=== PATIENT | male | born 1975 | race Caucasian/White ===

== ENCOUNTER 2016-10-07 02:36 | Emergency (ER) | payer SELFPAY ==
[~2016-10-07] VITALS: Ht 170.2 cm; Wt 58.0 kg
[~2016-10-07 02:36] MED LIST: DEPA500T3 PO; OLAN5 PO
[2016-10-07 02:47] VITALS: BP 165/77; PULSE 99; RESP 18; TEMP 98.4; O2SAT 98
[2016-10-07] MEDS ORDERED: SODIUM CHLOR 0.9% 1000 ML INJ 1,000 ML IV ONE (03:00)
[2016-10-07 03:15] LABS: AUTOMATED NEUTROPHIL # 19.5 TH/MM3 (1.8-7.7); BASOPHIL % 0.2 % (0.0-2.0); EOSINOPHIL # 0.1 TH/MM3 (0-0.4); EOSINOPHIL % 0.3 % (0.0-4.0); HEMATOCRIT 41.1 % (39.0-51.0); HEMO FLAGS DIFF FINAL; LYMPH % 10.1 % (9.0-44.0); LYMPHOCYTE # 2.3 TH/MM3 (1.0-4.8); MEAN CELL VOLUME 91.3 FL (80.0-100.0); MONO % 5.4 % (0.0-8.0); PLATELET COUNT 289 TH/MM3 (150-450); RED CELL DISTRIBUTION WIDTH 13.3 % (11.6-17.2); WHITE BLOOD COUNT 23.2 TH/MM3 (4.0-11.0)
[2016-10-07] MEDS ORDERED: ACETAMINOPHEN 325 MG TAB PO ONE ×2 (03:15→11:30)
--- NOTE | 2016-10-07 03:31 | RADRPT ---
EXAM DATE/TIME: 10/07/2016 03:06 [facility] COMPARISON: No previous studies available for comparison. INDICATIONS : Shortness of breath. MEDICAL HISTORY : None. SURGICAL HISTORY : None. ENCOUNTER: Initial ACUITY: 1 day PAIN SCORE: 0/10 LOCATION: Bilateral chest FINDINGS: The lungs are clear without infiltrate, nodule, or mass. There is no appreciable pleural effusion fo r technique. Heart and mediastinum are unremarkable. CONCLUSION: No acute cardiopulmonary disease. Smooth Connelly MD on October 07, 2016 at 3:29 Board Certified Radiologist. This report was verified electronically.
[2016-10-07 03:34] LABS: ACETAMINOPHEN LESS THAN 2.0 MCG/ML (10.0-30.0); ALT (GPT) 26 U/L (12-78); ANION GAP 9 MEQ/L (5-15); AST (GOT) 29 U/L (15-37); BICARBONATE 22.6 MEQ/L (21.0-32.0); BLOOD UREA NITROGEN 18 MG/DL (7-18); CHLORIDE 109 MEQ/L (98-107); GLOMERULAR FILTRATION RATE 81 ML/MIN (>89); POTASSIUM 3.6 MEQ/L (3.5-5.1); SODIUM (NA) 141 MEQ/L (136-145)
[2016-10-07 03:36] LABS: ALKALINE PHOSPHATASE 98 U/L (45-117); CREATINE KINASE 744 U/L (39-308); TOTAL BILIRUBIN ADULT 0.3 MG/DL (0.2-1.0)
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
[2016-10-07 06:15] LABS: AMPHETAMINE, URINE NEG (NEG); BARBITURATES, URINE NEG (NEG); COCAINE, URINE NEG (NEG)
[2016-10-07] MEDS ORDERED: LORazepam 2 MG/ML VIAL IV PUSH ONE (11:45)
[2016-10-07 12:00] VITALS: BP 125/72; PULSE 76; RESP 16; O2SAT 98
[2016-10-07 12:57] VITALS: RESP 16
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
== END 2016-10-07 14:22 | disposition home or self-care (01) ==
LOC: NEPE 02:36
DX: F43.25 Adjustment disorder with mixed disturbance of emotions and conduct (principal); F19.94 Other psychoactive substance use, unspecified with psychoactive substance-induced mood disorder; R06.02 Shortness of breath; F31.9 Bipolar disorder, unspecified; F20.9 Schizophrenia, unspecified; F17.210 Nicotine dependence, cigarettes, uncomplicated
CPT/HCPCS: 70450; 70486; 71010; 72125; 80053; 80307; 82550; 82552; 85025; 96361; 96374; 99285; J2060; J7030

== ENCOUNTER 2016-10-25 23:25 | Emergency (ER) | payer OTHER ==
[~2016-10-25] VITALS: Ht 188 cm; Wt 75.0 kg
[2016-10-25 23:45] VITALS: BP 158/81; PULSE 63; RESP 16; TEMP 98.4; O2SAT 97
[2016-10-25] MEDS ORDERED: LORazepam 2 MG/ML VIAL IM ONE (23:45)
[2016-10-25] MEDS ORDERED: HALOPERIDOL LACTATE 5 MG/ML AMP IM ONE (23:45)
[2016-10-26 00:51] LABS: AUTOMATED NEUTROPHIL # 6.2 TH/MM3 (1.8-7.7); BASOPHIL % 0.3 % (0.0-2.0); EOSINOPHIL # 0.2 TH/MM3 (0-0.4); EOSINOPHIL % 1.8 % (0.0-4.0); HEMATOCRIT 43.1 % (39.0-51.0); HEMO FLAGS DIFF FINAL; LYMPH % 35.3 % (9.0-44.0); LYMPHOCYTE # 3.8 TH/MM3 (1.0-4.8); MEAN CELL VOLUME 90.9 FL (80.0-100.0); MEAN CORPUSCULAR HEMOGLOBIN 31.9 PG (27.0-34.0); NEUT % 58.6 % (16.0-70.0); PLATELET COUNT 360 TH/MM3 (150-450); RED BLOOD COUNT 4.74 MIL/MM3 (4.50-5.90); RED CELL DISTRIBUTION WIDTH 13.4 % (11.6-17.2); WHITE BLOOD COUNT 10.6 TH/MM3 (4.0-11.0)
[2016-10-26 00:59] LABS: AMPHETAMINE, URINE NEG (NEG); BARBITURATES, URINE NEG (NEG); COCAINE, URINE NEG (NEG)
[2016-10-26 01:11] LABS: ACETAMINOPHEN LESS THAN 2.0 MCG/ML (10.0-30.0); ALT (GPT) 36 U/L (12-78); ANION GAP 8 MEQ/L (5-15); AST (GOT) 26 U/L (15-37); BICARBONATE 27.1 MEQ/L (21.0-32.0); BLOOD UREA NITROGEN 10 MG/DL (7-18); CHLORIDE 110 MEQ/L (98-107); GLOMERULAR FILTRATION RATE 106 ML/MIN (>89); POTASSIUM 3.8 MEQ/L (3.5-5.1); SODIUM (NA) 145 MEQ/L (136-145)
[2016-10-26 01:13] LABS: ALKALINE PHOSPHATASE 95 U/L (45-117); TOTAL BILIRUBIN ADULT 0.2 MG/DL (0.2-1.0)
--- NOTE | 2016-10-26 01:39 | PD ---
HPI Chief Complaint: Psychiatric Symptoms Time Seen by Provider: 01:33 Travel History International Travel<30 days: No Contact w/Intl Traveler<30days: No Traveled to known affect area: No History of Present Illness HPI 41-year-old white male presents to emergency department under Dodson act by PD. The patient is combative with PD. He is in handcuffs and a spit mask. The patient is thrashing about and is uncooperative. I have concern for the patient 's safety as well as the medical staff. The patient is medicated with Haldol 5 mg IM and 2 mg of Ativan IM. The patient is refusing to give any meaningful history. He does deny any suicidal homicidal ideation. According to the Dodson act the patient was found laying in the road. The patient appeared to be under the influence of drugs and alcohol. PFSH Past Medical History Narrative Medical Review of medical history through the medical record Bipolar Disorder: Yes Anxiety: Yes Depression: Yes Cancer: No Cardiovascular Problems: No Diabetes: No Diminished Hearing: No Endocrine: No Immune Disorder: No Musculoskeletal: No Neurologic: No Psychiatric: Yes Reproductive: No Respiratory: No Schizophrenia: Yes Tetanus Vaccination: Unknown Past Surgical History Abdominal Surgery: No Cardiac Surgery: No Ear Surgery: No Endocrine Surgery: No Eye Surgery: No Genitourinary Surgery: No Gynecologic Surgery: No Neurologic Surgery: No Oral Surgery: Yes Thoracic Surgery: No Tonsillectomy: Yes Other Surgery: Yes Social History Alcohol Use: Yes Tobacco Use: Yes (PPD) Substance Use: Yes (Hx IVDA per records.) Allergies-Medications (Allergen,Severity, Reaction): Coded Allergies: No Known Allergies (Unverified , 10/25/16) Reported Meds & Prescriptions Reported Meds & Active Scripts Active No Active Prescriptions or Reported Medications Review of Systems ROS Limitations: Intoxication, Uncooperative, Combative Physical Exam Narrative GENERAL: Well-nourished, well-developed patient. Patient is combative and uncooperative. He is placed in 4. restraints. He is medicated with Haldol and Ativan. He has a spit mask on by PD. SKIN: Warm and dry. HEAD: Normocephalic and atraumatic. EYES: No scleral icterus. No injection or drainage. ENT: No nasal drainage noted. Mucous membranes pink. Airway patent. NECK: Supple, trachea midline. Moves head freely without obvious discomfort. CARDIOVASCULAR: Regular rate and rhythm without murmurs, gallops, or rubs. RESPIRATORY: Breath sounds equal bilaterally. No accessory muscle use. GASTROINTESTINAL: Abdomen soft, non-tender, nondistended. EXTREMITIES: No cyanosis or edema. BACK: Nontender without obvious deformity. No CVA tenderness. NEURO: Patient is alert and oriented. no sensorimotor deficits. Nonfocal. Normal speech. PSYCH: No delusions. No auditory or visual hallucinations. Data Data Last Documented VS Vital Signs Date Time Temp Pulse Resp B/P Pulse Ox O2 Delivery O2 Flow Rate FiO2 10/25/16 23:45 98.4 63 16 158/81 97 Orders Complete Blood Count With Diff (10/25/16 23:31) Comprehensive Metabolic Panel (10/25/16 23:31) Psych Screen (10/25/16 23:31) Haloperidol Inj (Haldol Inj) (10/25/16 23:45) Lorazepam Inj (Ativan Inj) (10/25/16 23:45) Drug Screen, Random Urine (10/25/16 23:31) Alcohol (Ethanol) (10/25/16 23:31) Salicylates (Aspirin) (10/25/16 23:31) Tylenol (Acetaminophen) (10/25/16 23:31) Restraints Violent (10/25/16 23:34) Labs Laboratory Tests Test 10/26/16 10/26/16 00:35 00:40 White Blood Count 10.6 TH/MM3 Red Blood Count 4.74 MIL/MM3 Hemoglobin 15.1 GM/DL Hematocrit 43.1 % Mean Corpuscular Volume 90.9 FL Mean Corpuscular Hemoglobin 31.9 PG Mean Corpuscular Hemoglobin 35.0 % Concent Red Cell Distribution Width 13.4 % Platelet Count 360 TH/MM3 Mean Platelet Volume 7.6 FL Neutrophils (%) (Auto) 58.6 % Lymphocytes (%) (Auto) 35.3 % Monocytes (%) (Auto) 4.0 % Eosinophils (%) (Auto) 1.8 % Basophils (%) (Auto) 0.3 % Neutrophils # (Auto) 6.2 TH/MM3 Lymphocytes # (Auto) 3.8 TH/MM3 Monocytes # (Auto) 0.4 TH/MM3 Eosinophils # (Auto) 0.2 TH/MM3 Basophils # (Auto) 0.0 TH/MM3 CBC Comment DIFF FINAL Differential Comment Sodium Level 145 MEQ/L Potassium Level 3.8 MEQ/L Chloride Level 110 MEQ/L Carbon Dioxide Level 27.1 MEQ/L Anion Gap 8 MEQ/L Blood Urea Nitrogen 10 MG/DL Creatinine 0.81 MG/DL Estimat Glomerular Filtration 106 ML/MIN Rate Random Glucose 90 MG/DL Calcium Level 8.7 MG/DL Total Bilirubin 0.2 MG/DL Aspartate Amino Transf 26 U/L (AST/SGOT) Alanine Aminotransferase 36 U/L (ALT/SGPT) Alkaline Phosphatase 95 U/L Total Protein 7.2 GM/DL Albumin 4.1 GM/DL Salicylates Level 3.5 MG/DL Acetaminophen Level LESS THAN 2.0 MCG/ML Ethyl Alcohol Level 194 MG/DL Urine Opiates Screen NEG Urine Barbiturates Screen NEG Urine Amphetamines Screen NEG Urine Benzodiazepines Screen NEG Urine Cocaine Screen NEG Urine Cannabinoids Screen NEG MDM Medical Decision Making Medical Screen Exam Complete: Yes Emergency Medical Condition: Yes Medical Record Reviewed: Yes Interpretation(s) Laboratory Tests Test 10/26/16 10/26/16 00:35 00:40 White Blood Count 10.6 TH/MM3 Red Blood Count 4.74 MIL/MM3 Hemoglobin 15.1 GM/DL Hematocrit 43.1 % Mean Corpuscular Volume 90.9 FL Mean Corpuscular Hemoglobin 31.9 PG Mean Corpuscular Hemoglobin 35.0 % Concent Red Cell Distribution Width 13.4 % Platelet Count 360 TH/MM3 Mean Platelet Volume 7.6 FL Neutrophils (%) (Auto) 58.6 % Lymphocytes (%) (Auto) 35.3 % Monocytes (%) (Auto) 4.0 % Eosinophils (%) (Auto) 1.8 % Basophils (%) (Auto) 0.3 % Neutrophils # (Auto) 6.2 TH/MM3 Lymphocytes # (Auto) 3.8 TH/MM3 Monocytes # (Auto) 0.4 TH/MM3 Eosinophils # (Auto) 0.2 TH/MM3 Basophils # (Auto) 0.0 TH/MM3 CBC Comment DIFF FINAL Differential Comment Sodium Level 145 MEQ/L Potassium Level 3.8 MEQ/L Chloride Level 110 MEQ/L Carbon Dioxide Level 27.1 MEQ/L Anion Gap 8 MEQ/L Blood Urea Nitrogen 10 MG/DL Creatinine 0.81 MG/DL Estimat Glomerular Filtration 106 ML/MIN Rate Random Glucose 90 MG/DL Calcium Level 8.7 MG/DL Total Bilirubin 0.2 MG/DL Aspartate Amino Transf 26 U/L (AST/SGOT) Alanine Aminotransferase 36 U/L (ALT/SGPT) Alkaline Phosphatase 95 U/L Total Protein 7.2 GM/DL Albumin 4.1 GM/DL Salicylates Level 3.5 MG/DL Acetaminophen Level LESS THAN 2.0 MCG/ML Ethyl Alcohol Level 194 MG/DL Urine Opiates Screen NEG Urine Barbiturates Screen NEG Urine Amphetamines Screen NEG Urine Benzodiazepines Screen NEG Urine Cocaine Screen NEG Urine Cannabinoids Screen NEG Differential Diagnosis MDM: High Differential diagnoses: Schizophrenia, schizoaffective disorder, bipolar, anxiety, depression, adjustment reaction, mood disorder NOS, ODD, depressive disorder NOS, dementia, dementia with agitation, psychosis NOS, substance induced mood disorder, intermittent explosive disorder, Asperger syndrome, infection,electrolyte abnormality, malingering. Narrative Course Mental health screening discussed with the patient. Psychiatric screen ordered. The patient is medicated with Haldol 5 mg IM and 2 mg of Ativan IM. A mile a restraint order has been placed at time of his presentation to the ER. There is concern regarding the patient's well-being in the well-being of the medical staff due to his combative nature. The patient has been medically cleared. This is medical clearance for psychiatric admission, substance abuse Diagnosis Primary Impression: Medical clearance for psychiatric admission Additional Impression: Substance abuse Scripts No Active Prescriptions or Reported Meds Condition: Bharath Acosta Oct 26, 2016 01:39
[2016-10-26 02:28] VITALS: RESP 18
[2016-10-26 06:22] VITALS: BP 120/60; PULSE 75; RESP 18; O2SAT 96
--- NOTE | 2016-10-26 11:34 | PD ---
History of Present Illness Chief Complaint: Psychiatric Symptoms Time Seen by Provider: 10:45 Travel History International Travel<30 Days: No Contact w/Intl Traveler<30days: No Known affected area: No Legal Status Legal Status: Dodson Act Dodson Act Signed By: Yana Myers History of Present Illness: This is a 41-year-old male who was brought in under a Dodson act for dangerous behavior. He was felt to be intoxicated with alcohol and/or drugs and found in the road. When brought in by the police, the patient was very angry and attempting to spit on others, strike others, kick others, etc. He was a very poor historian and uncooperative with medical staff. At this time the patient is significantly more calm. He has received an injection of Haldol. He is no longer intoxicated and has been in the emergency department for many hours. At this time he is cognitively intact and without psychotic features. He denies any suicidal or homicidal ideation, plan or intent. He is verbally yan for safety. This physician met with the patient and the nurse to learn about the patient's recent behavior and future plans. Patient is being recommended for treatment at [facility]. His primary problem appears to be drug and alcohol abuse. PFSH Past Medical History Bipolar Disorder: Yes Anxiety: Yes Depression: Yes Cancer: No Cardiovascular Problems: No Diabetes: No Diminished Hearing: No Endocrine: No Immune Disorder: No Musculoskeletal: No Neurologic: No Psychiatric: Yes Reproductive: No Respiratory: No Schizophrenia: Yes Tetanus Vaccination: Unknown Past Surgical History Abdominal Surgery: No Cardiac Surgery: No Ear Surgery: No Endocrine Surgery: No Eye Surgery: No Genitourinary Surgery: No Gynecologic Surgery: No Neurologic Surgery: No Oral Surgery: Yes Thoracic Surgery: No Tonsillectomy: Yes Other Surgery: Yes Psychiatric History Psychiatric History Hx Psychiatric Treatment: SCHIZOAFFECTIVE D/O, BIPOLAR D/O this physician does not see significant symptoms of bipolar disorder or schizoaffective disorder, bipolar type, at this time. The patient is reporting a history of alcohol abuse and this appears to be the primary reason for his behavior last night. This physician also does not see significant clinical evidence of schizoaffective disorder, bipolar disorder or other major mental disorders. Patient's primary problem is substance abuse. History of Inpatient Treatment: Yes Guns or firearms in home: No Social History Hx Alcohol Use: Yes Hx Tobacco Use: Yes (PPD) Hx Substance Use: Yes (Hx IVDA per records.) Substance Use Type: Alcohol, Nicotine/Cigarettes, Other Other Substances Used: "I'm not a junkie!" Hx of Substance Use Treatment: Yes Allergies-Medications (Allergen,Severity, Reaction): Coded Allergies: No Known Allergies (Unverified , 10/25/16) Reported Meds & Prescriptions Reported Meds & Active Scripts Active No Active Prescriptions or Reported Medications Review of Systems Except as stated in HPI: all other systems reviewed are Neg Exam Alert: Yes [place]: Person, Place, Date, Situation Mood: Calm Affect: Appropriate Speech: Clear, Logical Eye Contact: Normal Memory Intact: Immediate, Recent, Remote Insight/Judgement Adequate MDM Medical Decision Making Medical Record Reviewed: Yes Assessment/Plan Although the patient was likely intoxicated last night and was violent towards staff and dangerous to himself, at this point he is no longer intoxicated. While this physician understands the risks of discharging the patient and that he might return to drinking alcohol or using substances, it is considered non- therapeutic to admit him to the psychiatric hospital. Instead, he is being referred to [facility] for outpatient care or inpatient detox and rehabilitation. He is competent to verbally contract for safety and he is doing so. Orders Complete Blood Count With Diff (10/25/16 23:31) Comprehensive Metabolic Panel (10/25/16 23:31) Psych Screen (10/25/16 23:31) Haloperidol Inj (Haldol Inj) (10/25/16 23:45) Lorazepam Inj (Ativan Inj) (10/25/16 23:45) Drug Screen, Random Urine (10/25/16 23:31) Alcohol (Ethanol) (10/25/16 23:31) Salicylates (Aspirin) (10/25/16 23:31) Tylenol (Acetaminophen) (10/25/16 23:31) Restraints Violent (10/25/16 23:34) Diet Regular Basic (10/26/16 Breakfast) Results Vital Signs Date Time Temp Pulse Resp B/P Pulse Ox O2 Delivery O2 Flow Rate FiO2 10/26/16 06:31 75 18 10/26/16 06:22 75 18 120/60 96 Room Air 10/26/16 02:28 18 Room Air 10/25/16 23:45 98.4 63 16 158/81 97 Laboratory Tests Test 10/26/16 10/26/16 00:35 00:40 White Blood Count 10.6 Red Blood Count 4.74 Hemoglobin 15.1 Hematocrit 43.1 Mean Corpuscular Volume 90.9 Mean Corpuscular Hemoglobin 31.9 Mean Corpuscular Hemoglobin 35.0 Concent Red Cell Distribution Width 13.4 Platelet Count 360 Mean Platelet Volume 7.6 Neutrophils (%) (Auto) 58.6 Lymphocytes (%) (Auto) 35.3 Monocytes (%) (Auto) 4.0 Eosinophils (%) (Auto) 1.8 Basophils (%) (Auto) 0.3 Neutrophils # (Auto) 6.2 Lymphocytes # (Auto) 3.8 Monocytes # (Auto) 0.4 Eosinophils # (Auto) 0.2 Basophils # (Auto) 0.0 CBC Comment DIFF FINAL Differential Comment Sodium Level 145 Potassium Level 3.8 Chloride Level 110 Carbon Dioxide Level 27.1 Anion Gap 8 Blood Urea Nitrogen 10 Creatinine 0.81 Estimat Glomerular Filtration 106 Rate Random Glucose 90 Calcium Level 8.7 Total Bilirubin 0.2 Aspartate Amino Transf 26 (AST/SGOT) Alanine Aminotransferase 36 (ALT/SGPT) Alkaline Phosphatase 95 Total Protein 7.2 Albumin 4.1 Salicylates Level 3.5 Acetaminophen Level LESS THAN 2.0 Ethyl Alcohol Level 194 Urine Opiates Screen NEG Urine Barbiturates Screen NEG Urine Amphetamines Screen NEG Urine Benzodiazepines Screen NEG Urine Cocaine Screen NEG Urine Cannabinoids Screen NEG Diagnosis Primary Impression: Adjustment disorder with mixed disturbance of emotions and conduct Additional Impression: Alcohol abuse Referrals: [facility] (Out patient) call for appointment Departure Forms: Tests/Procedures Patient Instructions: General Instructions, Mood Disorders (ED), Alcohol Use Disorder (ED) Prescriptions No Active Prescriptions or Reported Meds Disposition: 01 DISCHARGE HOME Condition: Stable Problem Qualifiers Forrest Pascual MD Oct 26, 2016 11:34
== END 2016-10-26 10:59 | disposition home or self-care (01) ==
LOC: NEPD 23:25 → NEPJ 10-26 10:59
DX: F43.25 Adjustment disorder with mixed disturbance of emotions and conduct (principal); F10.129 Alcohol abuse with intoxication, unspecified; F31.9 Bipolar disorder, unspecified; F41.9 Anxiety disorder, unspecified; F20.9 Schizophrenia, unspecified; F17.210 Nicotine dependence, cigarettes, uncomplicated; Y90.6 Blood alcohol level of 120-199 mg/100 ml
CPT/HCPCS: 80053; 80307; 85025; 96372; 99285; J1630; J2060

== ENCOUNTER 2017-02-07 12:18 | Emergency (ER) | payer SELFPAY ==
[~2017-02-07] VITALS: Ht 167.6 cm; Wt 70.0 kg
[2017-02-07 12:27] VITALS: BP 138/75; PULSE 59; RESP 16; TEMP 98.1; O2SAT 100
--- NOTE | 2017-02-07 12:43 | PD ---
HPI Chief Complaint: Medical Clearance Time Seen by Provider: 12:40 Travel History International Travel<30 days: No Contact w/Intl Traveler<30days: No Traveled to known affect area: No History of Present Illness HPI 41-year-old male presents to the emergency department under and ask parked headache for evaluation. Patient states he has been on a methamphetamine binge. This has caused him to "act crazy" and his family was concerned that he may hurt himself. Patient did sustain injury to the posterior aspect of the left distal leg 3 days ago and was seen at [facility]. Sutures were placed. He does not recall how he did this. He was prescribed antibiotics but has not been taking them. Denies any fever or chills. Denies suicidal homicidal ideations. Has history of anxiety and depression. Has no other symptoms to report. PFSH Past Medical History Bipolar Disorder: Yes Anxiety: Yes Depression: Yes Cancer: No Cardiovascular Problems: No Diabetes: No Diminished Hearing: No Endocrine: No Immune Disorder: No Musculoskeletal: No Neurologic: No Psychiatric: Yes Reproductive: No Respiratory: No Schizophrenia: Yes Past Surgical History Abdominal Surgery: No Cardiac Surgery: No Ear Surgery: No Endocrine Surgery: No Eye Surgery: No Genitourinary Surgery: No Gynecologic Surgery: No Neurologic Surgery: No Oral Surgery: Yes Thoracic Surgery: No Tonsillectomy: Yes Other Surgery: Yes Social History Alcohol Use: Yes Tobacco Use: Yes Substance Use: Yes (Hx IVDA per records.) Allergies-Medications (Allergen,Severity, Reaction): Coded Allergies: No Known Allergies (Unverified , 02/07/17) Reported Meds & Prescriptions Reported Meds & Active Scripts Active No Active Prescriptions or Reported Medications Review of Systems Except as stated in HPI: all other systems reviewed are Neg Physical Exam Narrative GENERAL: Well-nourished male patient, ambulatory no acute distress SKIN: Focused skin assessment warm/dry. 9 Centimeter wound on the distal aspect of the left her extremity with sutures in place. There is surrounding erythema. No drainage. HEAD: Atraumatic. Normocephalic. EYES: Pupils equal and round. No scleral icterus. No injection or drainage. ENT: No nasal bleeding or discharge. Mucous membranes pink and moist. NECK: Trachea midline. No JVD. CARDIOVASCULAR: Regular rate and rhythm. No murmur appreciated. RESPIRATORY: No accessory muscle use. Clear to auscultation. Breath sounds equal bilaterally. GASTROINTESTINAL: Abdomen soft, non-tender, nondistended. Hepatic and splenic margins not palpable. MUSCULOSKELETAL: No obvious deformities. No clubbing. No cyanosis. No edema. NEUROLOGICAL: Awake and alert. No obvious cranial nerve deficits. Motor grossly within normal limits. Normal speech. Data Data Last Documented VS Vital Signs Date Time Temp Pulse Resp B/P (MAP) Pulse Ox O2 Delivery O2 Flow Rate FiO2 02/07/17 18:24 83 18 133/74 (93) 100 Room Air 02/07/17 15:58 98.0 Orders Orders Complete Blood Count With Diff (02/07/17 12:23) Comprehensive Metabolic Panel (02/07/17 12:23) Psych Screen (02/07/17 12:23) Drug Screen, Random Urine (02/07/17 12:23) Sulfamet-Trimeth Ds 800-160 Mg (Bactrim (02/07/17 13:00) Diet Regular Basic (02/07/17 Dinner) Labs Laboratory Tests Test 02/07/17 13:00 02/07/17 14:25 02/07/17 16:45 White Blood Count 11.8 TH/MM3 Red Blood Count 5.00 MIL/MM3 Hemoglobin 16.5 GM/DL Hematocrit 46.8 % Mean Corpuscular Volume 93.7 FL Mean Corpuscular Hemoglobin 33.0 PG Mean Corpuscular Hemoglobin Concent 35.2 % Red Cell Distribution Width 13.2 % Platelet Count 270 TH/MM3 Mean Platelet Volume 7.5 FL Neutrophils (%) (Auto) 67.0 % Lymphocytes (%) (Auto) 24.3 % Monocytes (%) (Auto) 6.6 % Eosinophils (%) (Auto) 1.6 % Basophils (%) (Auto) 0.5 % Neutrophils # (Auto) 7.9 TH/MM3 Lymphocytes # (Auto) 2.9 TH/MM3 Monocytes # (Auto) 0.8 TH/MM3 Eosinophils # (Auto) 0.2 TH/MM3 Basophils # (Auto) 0.1 TH/MM3 CBC Comment DIFF FINAL Differential Comment Blood Urea Nitrogen 13 MG/DL Creatinine 0.81 MG/DL Random Glucose 84 MG/DL Total Protein 7.1 GM/DL Albumin 3.6 GM/DL Calcium Level 9.0 MG/DL Alkaline Phosphatase 91 U/L Aspartate Amino Transf (AST/SGOT) 16 U/L Alanine Aminotransferase (ALT/SGPT) 20 U/L Total Bilirubin 0.2 MG/DL Sodium Level 139 MEQ/L Potassium Level 4.5 MEQ/L Chloride Level 105 MEQ/L Carbon Dioxide Level 27.1 MEQ/L Anion Gap 7 MEQ/L Estimat Glomerular Filtration Rate 106 ML/MIN Urine Opiates Screen NEG Urine Barbiturates Screen NEG Urine Amphetamines Screen NEG Urine Benzodiazepines Screen NEG Urine Cocaine Screen NEG Urine Cannabinoids Screen NEG MDM Medical Decision Making Medical Screen Exam Complete: Yes Emergency Medical Condition: Yes Medical Record Reviewed: Yes Differential Diagnosis Mood disorder versus personality disorder versus adjustment reaction disorder Narrative Course 41-year-old male presents to the emergency department under and asked parquet for evaluation. Patient reports methamphetamine use. Denies suicidal homicidal ideations. Laboratory Tests Test 02/07/17 13:00 02/07/17 14:25 02/07/17 16:45 White Blood Count 11.8 TH/MM3 Red Blood Count 5.00 MIL/MM3 Hemoglobin 16.5 GM/DL Hematocrit 46.8 % Mean Corpuscular Volume 93.7 FL Mean Corpuscular Hemoglobin 33.0 PG Mean Corpuscular Hemoglobin Concent 35.2 % Red Cell Distribution Width 13.2 % Platelet Count 270 TH/MM3 Mean Platelet Volume 7.5 FL Neutrophils (%) (Auto) 67.0 % Lymphocytes (%) (Auto) 24.3 % Monocytes (%) (Auto) 6.6 % Eosinophils (%) (Auto) 1.6 % Basophils (%) (Auto) 0.5 % Neutrophils # (Auto) 7.9 TH/MM3 Lymphocytes # (Auto) 2.9 TH/MM3 Monocytes # (Auto) 0.8 TH/MM3 Eosinophils # (Auto) 0.2 TH/MM3 Basophils # (Auto) 0.1 TH/MM3 CBC Comment DIFF FINAL Differential Comment Blood Urea Nitrogen 13 MG/DL Creatinine 0.81 MG/DL Random Glucose 84 MG/DL Total Protein 7.1 GM/DL Albumin 3.6 GM/DL Calcium Level 9.0 MG/DL Alkaline Phosphatase 91 U/L Aspartate Amino Transf (AST/SGOT) 16 U/L Alanine Aminotransferase (ALT/SGPT) 20 U/L Total Bilirubin 0.2 MG/DL Sodium Level 139 MEQ/L Potassium Level 4.5 MEQ/L Chloride Level 105 MEQ/L Carbon Dioxide Level 27.1 MEQ/L Anion Gap 7 MEQ/L Estimat Glomerular Filtration Rate 106 ML/MIN Urine Opiates Screen NEG Urine Barbiturates Screen NEG Urine Amphetamines Screen NEG Urine Benzodiazepines Screen NEG Urine Cocaine Screen NEG Urine Cannabinoids Screen NEG Lab work is without acute concern. Toxicology is negative. Patient is medically cleared to undergo psychiatric screening for further evaluation and disposition. Mental health screening discussed with the patient. Psychiatric screen ordered. Diagnosis Primary Impression: Adjustment disorder with mixed disturbance of emotions and conduct Scripts No Active Prescriptions or Reported Meds Condition: Bhakti Jack Feb 07, 2017 12:43
[2017-02-07 13:21] LABS: AUTOMATED NEUTROPHIL # 7.9 TH/MM3 (1.8-7.7); BASOPHIL # 0.1 TH/MM3 (0-0.2); BASOPHIL % 0.5 % (0.0-2.0); EOSINOPHIL # 0.2 TH/MM3 (0-0.4); EOSINOPHIL % 1.6 % (0.0-4.0); HEMATOCRIT 46.8 % (39.0-51.0); HEMO FLAGS DIFF FINAL; LYMPH % 24.3 % (9.0-44.0); LYMPHOCYTE # 2.9 TH/MM3 (1.0-4.8); MEAN CELL VOLUME 93.7 FL (80.0-100.0); MEAN CORPUSCULAR HGB CONC 35.2 % (32.0-36.0); MONO % 6.6 % (0.0-8.0); PLATELET COUNT 270 TH/MM3 (150-450); RED CELL DISTRIBUTION WIDTH 13.2 % (11.6-17.2); WHITE BLOOD COUNT 11.8 TH/MM3 (4.0-11.0)
[2017-02-07] MEDS: SULFAMETHOXAZOLE-TRIMETHOPRIM DS 800-160 MG TAB PO SCH ×2 (13:36→21:00)
[2017-02-07 15:02] VITALS: BP 130/72; PULSE 64; RESP 18; O2SAT 98
[2017-02-07 15:36] LABS: ALT (GPT) 20 U/L (12-78); ANION GAP 7 MEQ/L (5-15); AST (GOT) 16 U/L (15-37); BICARBONATE 27.1 MEQ/L (21.0-32.0); BLOOD UREA NITROGEN 13 MG/DL (7-18); CHLORIDE 105 MEQ/L (98-107); GLOMERULAR FILTRATION RATE 106 ML/MIN (>89); POTASSIUM 4.5 MEQ/L (3.5-5.1); SODIUM (NA) 139 MEQ/L (136-145)
[2017-02-07 15:39] LABS: ALKALINE PHOSPHATASE 91 U/L (45-117); TOTAL BILIRUBIN ADULT 0.2 MG/DL (0.2-1.0)
[2017-02-07 15:58] VITALS: BP 124/76; PULSE 60; RESP 15; TEMP 98; O2SAT 98
[2017-02-07 18:24] VITALS: BP 133/74; PULSE 83; RESP 18; O2SAT 100
[2017-02-07 22:15] VITALS: BP 103/57; PULSE 53; RESP 18; O2SAT 97
[2017-02-08 02:29] VITALS: BP 118/56; PULSE 52; RESP 18; O2SAT 98
[2017-02-08 06:35] VITALS: BP 119/58; PULSE 59; RESP 15; TEMP 98; O2SAT 97
[2017-02-08] MEDS: SULFAMETHOXAZOLE-TRIMETHOPRIM DS 800-160 MG TAB PO SCH (08:56)
[2017-02-08] MEDS ORDERED: BACT800T5 PO (09:19)
[2017-02-08 11:17] VITALS: BP 156/73; PULSE 60; RESP 18; TEMP 98.5; O2SAT 98
== END 2017-02-08 11:50 ==
LOC: NEPD 12:18 → NEPJ 02-08 11:50
DX: F43.25 Adjustment disorder with mixed disturbance of emotions and conduct (principal); Z72.0 Tobacco use
CPT/HCPCS: 80053; 80307; 85025; 99284